=== PATIENT | male | born 1995 | race Two or more races ===

== ENCOUNTER 2018-03-09 14:40 | Emergency (ER) | payer OTHER ==
[~2018-03-09] VITALS: Ht 182.9 cm; Wt 118.8 kg
[~2018-03-09 14:40] MED LIST: DIVALPROEX SOD250 M1 PO; LORAZEPAM0.5 MG PO; RISPERIDONE M-TA3 MG PO
[2018-03-09] MEDS ORDERED: AUGMENTIN875 MG PO (17:16)
[2018-03-09] MEDS ORDERED: PERCOCET 5/31 TABLET PO (17:19)
[2018-03-09 17:25] VITALS: BP 144/91
== END 2018-03-09 17:26 | disposition home or self-care (01) ==
LOC: EME 14:40
PROC: 0H98XZZ Drainage of Buttock Skin, External Approach (ICD-10-PCS; principal; 2018-03-09)
DX: L05.01 Pilonidal cyst with abscess (principal)
CPT/HCPCS: 87070; 87075; 87076; 87185; 87205; 99281; 99284

== ENCOUNTER 2018-03-11 06:24 | Emergency (ER) | payer OTHER ==
[~2018-03-11] VITALS: Ht 177.8 cm; Wt 118.7 kg
[~2018-03-11 06:24] MED LIST changes: +AUGMENTIN875 MG PO; +PERCOCET 5/31 TABLET PO
[2018-03-11 07:05] VITALS: BP 113/75
== END 2018-03-11 07:05 | disposition home or self-care (01) ==
LOC: EME 06:24
DX: Z48.01 Encounter for change or removal of surgical wound dressing (principal)
CPT/HCPCS: 99281; 99283

== ENCOUNTER 2018-05-12 10:06 | Day surgery (SDC) | payer OTHER ==
[~2018-05-12] VITALS: Ht 175.3 cm; Wt 120.2 kg
[~2018-05-12 10:06] MED LIST changes: +ABILIFY20 MG PO; +BUSPAR30 MG PO; +DEPAKOTE250 MG PO; +DEPAKOTE500 MG PO; +GEODON60 MG PO; +INDERAL40 MG PO; +ZOLOFT100 MG PO
[2018-05-12 10:59] VITALS: BP 121/64
[2018-05-12] MEDS ORDERED: OXYCODONE-ACET1 EACH PO (13:52)
[2018-05-12 15:36] VITALS: BP 137/82
[2018-05-12 16:36] VITALS: BP 134/86
== END 2018-05-12 16:40 | disposition home or self-care (01) ==
LOC: 2SOUTH 10:06 → SDC 10:06 → 2SOUTH 10:06 → ENRESERV 13:50 → CANRESERV 14:18 → ENRESERV 14:18 → EDSTATUS 16:16 → SDC 16:40
PROC: 0JB90ZZ Excision of Buttock Subcutaneous Tissue and Fascia, Open Approach (ICD-10-PCS; principal; 2018-05-12)
DX: L05.91 Pilonidal cyst without abscess (principal); G40.909 Epilepsy, unspecified, not intractable, without status epilepticus; F20.9 Schizophrenia, unspecified; F41.9 Anxiety disorder, unspecified
CPT/HCPCS: 88304; J0131; J0330; J1100; J1170; J2250; J2405; J3010; S0020; S0074